=== PATIENT | female | born 1940 | race Caucasian/White ===

== ENCOUNTER → 2016-04-21 | Outpatient (CLI) | payer OTHER, MEDICARE ==
--- NOTE | 2016-04-21 15:54 | DX ---
Chest, Two Views at 1531 hours History: Cough, congestion, J42. Comparison: July 2014 Findings: Cardiac silhouette is within normal range. Large retrocardiac hiatal hernia. Patchy right l ower lobe costophrenic angle opacity which may represent early pneumonia. Impression: 1. Large hiatal hernia. 2. Possible early right lower lobe pneumonia.
== END ==
LOC: CIMAGING 15:22
PROVIDERS: ATTEND Internal Medicine
DX: K44.9 Diaphragmatic hernia without obstruction or gangrene (principal); R91.8 Other nonspecific abnormal finding of lung field
CPT/HCPCS: 71020-PO

== ENCOUNTER 2016-05-15 08:52 | Emergency (ER) | payer OTHER, MEDICARE ==
[2016-05-15 09:21] VITALS: RESP 22; TEMP 97.9
--- NOTE | 2016-05-15 10:08 | CPEKG ---
Heart Rate: 68 RR Interval: 882 P-R Interval: 140 QRSD Interval: 80 QT Interval: 408 QTC Interval: 434 P [place]: 9 QRS [place]: 12 T Wave [place]: 1 EKG Severity - NORMAL ECG - EKG Impression: SINUS RHYTHM Electronically Signed By: Jadon Marroquin 15-May-2016 15:39:12
[2016-05-15] MEDS ORDERED: IPRATROPIUM/ALBUTEROL 3 ML DEYVIAL IH ONE (10:19)
[2016-05-15 10:25] LABS: % IMMATURE GRANULYOCYTES 0.6 % (0.0-1.1); ABSOLUTE IMMATURE GRANULOCYTES 0.06 10^3/uL (0.00-0.10); ADD DIFF? NO; ADD MORPH? NO; ADD SCAN? NO; ATYPICAL LYMPHOCYTE FLAG 20 (0-99); FRAGMENT RBC FLAG 0 (0-99); HEMATOCRIT 32.4 % (38.0-47.0); HEMOGLOBIN 10.8 g/dL (12.6-16.3); LEFT SHIFT FLG 0 (0-99); LIPEMIA HEMOLYSIS FLAG 80 (0-99); MEAN CELL HEMOGLOBIN 31.3 pg (27.9-34.1); MEAN CELL HEMOGLOBIN CONCENTR. 33.3 g/dL (32.4-36.7); MEAN CELL VOLUME 93.9 fL (81.5-99.8); MEAN PLATELET VOLUME 9.6 fL (8.7-11.7); PLATELET CLUMPS FLAG 10 (0-99); PLATELET COUNT 223 10^3/uL (150-400); RED BLOOD CELL COUNT 3.45 10^6/uL (4.18-5.33); RED CELL DISTRIBUTION WIDTH 15.9 % (11.5-15.2)
[2016-05-15 10:41] LABS: ANION GAP 12 mEq/L (8-16); CALCIUM 8.9 mg/dL (8.5-10.4); CARBON DIOXIDE 24 mEq/l (22-31); CHLORIDE 104 mEq/L (97-110); CREATININE 1.1 mg/dL (0.6-1.0); GLOMERULAR FILTRATION RATE 48; GLUCOSE 96 mg/dL (70-100); POTASSIUM 3.9 mEq/L (3.5-5.2); SODIUM 140 mEq/L (134-144)
[2016-05-15 10:54] LABS: TROPONIN I < 0.012 ng/mL (0-0.034)
--- NOTE | 2016-05-15 10:54 | DX ---
PA and lateral chest. Clinical History: sob night sweats pneu 3 wk lpta Comparison Study: April 21, 2016.. Findings: The lungs are clear. No pleural disease identified. Heart size is normal. Moderate size hiatal hernia.. Impression: Stable chest. Hiatal hernia.
--- NOTE | 2016-05-15 11:02 | UCPHY ---
H & P Patient Type: New Chief Complaint Nursing Narrative: 2 days of sob and night sweats. Right mid back pain and chest tight. History of resp issues. 3 wks ago Right sided pneumonia txd with Zpack and pred. Time Seen by Provider: 05/15/16 09:25 HPI/ROS: Over the past 2 nights this patient reports increase an cough was associated diaphoresis at night over the past couple nights. She also has a feeling of dyspnea. She thinks that the symptoms are attributable to her asthma. However , she was diagnosed with pneumonia 3 weeks ago the visit to Dr. [facility] office and a chest x-ray. She was treated with Zithromax antibiotics and she felt her symptoms improved until the last 2 days when the cough returned. She reports a tightness in her chest that feels mild in intensity and similar to previous asthma. She reports currently that is 4/10 in intensity and she notes no exacerbating or alleviating factors. The pain does not radiate from her chest. ROS: No fevers or chills. She reports no other constitutional complaints including no fatigue. HEENT: No significant coryza. No sore throat. No other complaints. Pulmonary: No pleuritic pain. No respiratory distress. Cardiovascular: No heart palpitations. She reports no lower extremity swelling or calf pain. GI: No nausea vomiting. : No complaints skin: No skin rash neurologic: No complaints 10 point ROS is otherwise negative. Source: Patient Exam Limitations: No limitations - Medical/Surgical History PMH: History of a systolic murmur and mildly enlarged heart. 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 Hx Asthma: Yes Hx Chronic Respiratory Disease: Yes Hx Diabetes: No Hx Cardiac Disease: No Hx Renal Disease: Yes Hx Cirrhosis: No Hx Alcoholism: No Hx HIV/AIDS: No Hx Splenectomy or Spleen Trauma: No Other PMH: PCP Reidal. asthma / interstitial lung dx. Hysterectomy. r wrist repair. tonsilectomy - Family History Significant Family History: No pertinent family hx - Social History Smoking Status: Former smoker Alcohol Use: None Drug Use: None Additional Social History: The patient lives alone. - Physical Exam Exam: General Appearance: Alert, no distress. Eyes: Pupils equal and round no pallor or injection. ENT, Mouth: Mucous membranes moist. Respiratory: Mild rales right base more than left. Faint expiratory wheeze that is mild. Cardiovascular: Regular rate and rhythm. The patient has a 2/6 holosystolic murmur. No JVD. No peripheral edema. Gastrointestinal: Abdomen is soft and nontender, no masses, bowel sounds normal. Neurological: . Alert with no focal deficits Skin: Warm and dry, no rashes. Musculoskeletal: Neck is supple nontender. Extremities are symmetrical, full range of motion. Psychiatric: Mood and affect are normal. DIFFERENTIAL DIAGNOSIS: After history and physical exam differential diagnosis was considered for recurrent pneumonia, bronchitis, congestive heart failure, coronary syndrome, asthma exacerbation Constitutional: Initial Vital Signs Temperature (C) 36.6 C 05/15/16 09:16 Heart Rate 78 05/15/16 09:16 Respiratory Rate 22 H 05/15/16 09:16 Blood Pressure 158/88 H 05/15/16 09:16 O2 Sat (%) 96 05/15/16 09:16 O2 Delivery Mode Room Air O2 (L/minute) 2 Allergies/Adverse Reactions: clindamycin Allergy (Verified 05/15/16 09:21) Penicillins Allergy (Verified 05/15/16 09:21) Tetracyclines Allergy (Verified 05/15/16 09:21) Home Medications: Medication Instructions Recorded Albuterol [Proventil Inhaler HFA 2 puffs IH Q4 PRN #1 mdi 05/15/16 (*)] Budesonide/Formoterol 160/4.5 1 puffs IH BID #1 mdi 05/15/16 [Symbicort 160-4.5 Mcg Inh (*)] Flonase Nasal [place] 05/15/16 Montelukast Sodium 10 mg PO DAILY #30 tablet 05/15/16 Pepcid AC 05/15/16 Proair Hfa Icu (*) 05/15/16 Symbicort 160-4.5 Mcg Inh (*) 05/15/16 levOFLOXACIN [Levaquin] 500 mg PO DAILY #7 tablet 05/15/16 predniSONE 40 mg PO DAILY #10 tab 05/15/16 Medical Decision Making - Diagnostics EKG Interpretation: 12 lead EKG performed at 10:06 a.m. reveals sinus rhythm at 68 Intervals: Normal throughout [place]: Normal throughout ST segments: Normal throughout Overall assessment normal EKG. Imaging: Chest x-ray: Appreciate no focal infiltrates. When compared to previous chest x-ray I do not appreciate significant interval change. Our radiologist read this as stable chest ED Course/Re-evaluation: DuoNeb with increased aeration decreased cough and wheeze. Patient felt subjective improvement. Pursued further workup given her age, systolic murmur and chest tightness to rule out coronary syndrome other is in review of her labs reveals normal troponin, and BNP within normal limits for her age, CBC with mild leukocytosis. While she has anemia it is improving when I review her previous CBCs. Electrolytes normal. I counseled regarding findings. Given the leukocytosis and worsening symptoms for 48 hours will cover her with an antibiotic. She also feels that she still has significant asthma symptoms and is open to a burst of prednisone. Counseled her regarding this and she received 1st dose of prednisone here. I think that the rales on her exam are likely baseline triple to her interstitial lung disease. Patient is not certain if she typically has rales on her exam or not. - Data Points Laboratory Results: Laboratory Results 05/15/16 10:20 05/15/16 10:20 05/15/16 05/15/16 11:20 10:20 WBC 9.71 H 10^3/uL (3.80-9.50) RBC 3.45 L 10^6/uL (4.18-5.33) Hgb 10.8 L g/dL (12.6-16.3) Hct 32.4 L % (38.0-47.0) MCV 93.9 fL (81.5-99.8) MCH 31.3 pg (27.9-34.1) MCHC 33.3 g/dL (32.4-36.7) RDW 15.9 H % (11.5-15.2) Plt Count 223 10^3/uL (150-400) MPV 9.6 fL (8.7-11.7) Neut % (Auto) 75.1 H % (39.3-74.2) Lymph % (Auto) 14.0 L % (15.0-45.0) [place] % (Auto) 7.6 % (4.5-13.0) Eos % (Auto) 2.1 % (0.6-7.6) Baso % (Auto) 0.6 % (0.3-1.7) Nucleat RBC Rel Count 0.0 % (0.0-0.2) Absolute Neuts (auto) 7.29 H 10^3/uL (1.70-6.50) Absolute Lymphs (auto) 1.36 10^3/uL (1.00-3.00) Absolute Monos (auto) 0.74 10^3/uL (0.30-0.80) Absolute Eos (auto) 0.20 10^3/uL (0.03-0.40) Absolute Basos (auto) 0.06 10^3/uL (0.02-0.10) Absolute Nucleated RBC 0.00 10^3/uL (0-0.01) Immature Gran % 0.6 % (0.0-1.1) Immature Gran # 0.06 10^3/uL (0.00-0.10) Sodium 140 mEq/L (134-144) Potassium 3.9 mEq/L (3.5-5.2) Chloride 104 mEq/L (97-110) Carbon Dioxide 24 mEq/l (22-31) Anion Gap 12 mEq/L (8-16) BUN 21 mg/dL (7-23) Creatinine 1.1 H mg/dL (0.6-1.0) Estimated GFR 48 Glucose 96 mg/dL (70-100) Calcium 8.9 mg/dL (8.5-10.4) Troponin I < 0.012 ng/mL (0-0.034) NT-Pro-B Natriuret Pep 828 H pg/mL (0-450) Influenza Typ A,B (DFA) NEGATIVE FOR FLU (NEGATIVE) Medications Given: Discontinued Medications Albuterol/Ipratropium (Duoneb) 3 ml IH EDNOW ONE Stop: 05/15/16 10:20 Last Admin: 05/15/16 10:30 Dose: 3 ml Prednisone (Prednisone) 40 mg PO EDNOW ONE Stop: 05/15/16 11:06 Last Admin: 05/15/16 11:10 Dose: 40 mg Departure - Departure Disposition: Home, Routine, Self-Care Clinical Impression: Asthma exacerbation Acute bronchitis Qualifiers: Bronchitis organism: unspecified organism Qualifier Code: (J20.9) Acute bronchitis, unspecified Condition: Good Instructions: Acute Bronchitis (ED), Asthma (ED) Additional Instructions: Diagnosis: 1. Acute bronchitis 2. Asthma exacerbation Plan: Prednisone Albuterol inhaler with spacer for cough, wheeze or shortness of breath Levaquin antibiotic Call your primary care physician to arrange follow-up appointment in 3-5 days for recheck Go to the emergency department for any significant worsening despite the treatment plan. Referrals: Baldemar Rosas MD [Primary Care Provider] - As per Instructions Prescriptions: levOFLOXACIN [Levaquin] 500 mg PO DAILY #7 tablet Montelukast Sodium 10 mg PO DAILY #30 tablet Albuterol [Proventil Inhaler HFA (*)] 2 puffs IH Q4 PRN #1 mdi PRN Reason: Wheezing Budesonide/Formoterol 160/4.5 [Symbicort 160-4.5 Mcg Inh (*)] 1 puffs IH BID #1 mdi predniSONE 40 mg PO DAILY #10 tab - PQRS PQRS Measurement: 134: Depression screening and followup, PRIME MD-PHQ2 (12 years and older) Over the last 2 weeks, how often have you been bothered by any of the following problems? 1. Feeling down, depressed, or hopeless? 2. Little interest or pleasure in doing things? Patient answered no to both 1 and 2 130: Documentation of medications. Reviewed all patient medications, doses, route and frequency. 226: Do you smoke? [No.] 47: 65 and older: Advanced care planning. Patient designates surrogate decision maker as [Patient has advanced directive.] 51: 18 years old and older with diagnosis of COPD, spirometry performance. NA 52: 18 years old and older with COPD and symptoms of COPD or FEV1<60% predicted prescribed a B Agonist. NA
[2016-05-15] MEDS ORDERED: predniSONE 20 MG TAB PO ONE (11:05)
[2016-05-15 11:35] VITALS: BP 150/90; PULSE 77; O2SAT 92
== END 2016-05-15 11:52 | disposition home or self-care (01) ==
LOC: CED 08:52
DX: J45.901 Unspecified asthma with (acute) exacerbation (principal); J20.9 Acute bronchitis, unspecified; Z87.891 Personal history of nicotine dependence; Z88.0 Allergy status to penicillin
CPT/HCPCS: 71020; 93005; G0463; 80048-PO; 83880-PO; 84484-PO; 85025-PO; 87400-PO; 93010-PO; 99205-PO

== ENCOUNTER 2016-09-14 16:49 | Emergency (ER) | payer OTHER, MEDICARE ==
[2016-09-14 16:58] VITALS: RESP 18; TEMP 98.2
[2016-09-14] MEDS ORDERED: predniSONE 20 MG TAB PO ONE (17:09)
--- NOTE | 2016-09-14 17:19 | EDPHY ---
H & P Stated Complaint: cough for 3 weeks, felt feverish, tight to breath Time Seen by Provider: 09/14/16 17:01 HPI/ROS: CHIEF COMPLAINT: Cough HISTORY OF PRESENT ILLNESS: The patient is a 76-year-old female with a history of interstitial lung disease comes to the emergency department complaining of cough persistent for the last 3 weeks. She has been afebrile. Cough is not been productive. She denies shortness of breath. She denies chest pain. She has been using her inhaler up to 5 times a day and her nebulizer 4 times a day. She has a history of a GI bleed and was told not to take nonsteroidals. She thought this med she cannot take prednisone either. REVIEW OF SYSTEMS: Constitutional: denies: chills, fever, recent illness, recent injury EENTM: denies: blurred vision, double vision, nose congestion Respiratory: See HPI Cardiac: denies: chest pain, irregular heart rate, lightheadedness, palpitations Gastrointestinal/Abdominal: denies: abdominal pain, diarrhea, nausea, vomiting, blood streaked stools Genitourinary: denies: dysuria, frequency, hematuria, pain Musculoskeletal: denies: joint pain, muscle pain Skin: denies: lesions, rash, jaundice, bruising Neurological: denies: headache, numbness, paresthesia, tingling, dizziness, weakness Hematologic/Lymphatic: denies: blood clots, easy bleeding, easy bruising Immunologic/allergic: denies: HIV/AIDS, transplant EXAM: GENERAL: Well-appearing, well-nourished and in no acute distress. HEAD: Atraumatic, normocephalic. EYES: Pupils equal round and reactive to light, extraocular movements intact, sclera anicteric, conjunctiva are normal. ENT: TMs normal, nares patent, oropharynx clear without exudates. Moist mucous membranes. NECK: Normal range of motion, supple without lymphadenopathy or JVD. LUNGS: Right lower lobe rhonchi. No wheezing HEART: Regular rate and rhythm without murmurs, rubs or gallops. ABDOMEN: Soft, nontender, normoactive bowel sounds. No guarding, no rebound. No masses appreciated. BACK: No CVA tenderness, no spinal tenderness, step-offs or deformities EXTREMITIES: Normal range of motion, no pitting or edema. No clubbing or cyanosis. NEUROLOGICAL: Cranial nerves II through XII grossly intact. Normal speech, normal gait. 5/5 strength, normal movement in all extremities, normal sensation PSYCH: Normal mood, normal affect. SKIN: She does have a small candidal infection underneath crease of her left breast. Source: Patient Exam Limitations: No limitations - Medical/Surgical History Hx Asthma: Yes Hx Chronic Respiratory Disease: Yes Hx Diabetes: No Hx Cardiac Disease: No Hx Renal Disease: Yes Hx Cirrhosis: No Hx Alcoholism: No Hx HIV/AIDS: No Hx Splenectomy or Spleen Trauma: No Other PMH: PCP Reidal. asthma / interstitial lung dx. Hysterectomy. r wrist repair. tonsilectomy - Family History Significant Family History: No pertinent family hx - Social History Smoking Status: Former smoker Alcohol Use: None Drug Use: None Constitutional: Initial Vital Signs Temperature (C) 36.8 C 09/14/16 16:56 Heart Rate 83 09/14/16 16:56 Respiratory Rate 18 09/14/16 16:56 Blood Pressure 158/88 H 09/14/16 16:56 O2 Sat (%) 94 09/14/16 16:56 O2 Delivery Mode Room Air Allergies/Adverse Reactions: clindamycin Allergy (Verified 09/14/16 16:56) Penicillins Allergy (Verified 09/14/16 16:56) Tetracyclines Allergy (Verified 09/14/16 16:56) Home Medications: Medication Instructions Recorded Albuterol [Proventil Inhaler HFA 2 puffs IH Q4 PRN #1 mdi 05/15/16 (*)] Budesonide/Formoterol 160/4.5 1 puffs IH BID #1 mdi 05/15/16 [Symbicort 160-4.5 Mcg Inh (*)] Flonase Nasal [place] 05/15/16 Montelukast Sodium 10 mg PO DAILY #30 tablet 05/15/16 Pepcid AC 05/15/16 Proair Hfa Icu (*) 05/15/16 Symbicort 160-4.5 Mcg Inh (*) 05/15/16 levOFLOXACIN [Levaquin] 500 mg PO DAILY #7 tablet 05/15/16 predniSONE 40 mg PO DAILY #10 tab 05/15/16 AZITHROMYCIN [Z-PACK] 250 mg PO DAILY #6 tab 09/14/16 Miconazole Nitrate [Miconazole 7] 45 gm TD BID #1 cream.appl 09/14/16 predniSONE 60 mg PO DAILY #15 tab 09/14/16 Medical Decision Making - Diagnostics Imaging Results: Imaging Impressions Chest X-Ray 09/14/16 17:11 Impression: Large hiatal hernia. Imaging: I viewed and interpreted images myself ED Course/Re-evaluation: The patient's x-rays are reassuring. Considering her lung exam and history I will start her on prednisone and azithromycin. She is agreeable with this plan. She is going to be traveling to [place] for . She is happy with this and declines further workup or testing. Differential Diagnosis: Partial list of the Differential diagnosis considered include but were not limited to; pneumonia, bronchitis, reactive airway disease and although unlikely based on the history and physical exam, I also considered acute coronary disease, PE, pneumothorax. I discussed these differential diagnoses and the plan with the patient as well as the usual and expected course. The patient understands that the diagnosis is provisional and that in medicine we are not always correct and that further workup is often warranted. Usual and customary warnings were given. All of the patient's questions were answered. The patient was instructed to return to the emergency department should the symptoms at all worsen or return, otherwise to followup with the physician as we discussed. - Data Points Medications Given: Discontinued Medications Prednisone (Prednisone) 60 mg PO EDNOW ONE Stop: 09/14/16 17:10 Last Admin: 09/14/16 17:28 Dose: 60 mg Departure - Departure Disposition: Home, Routine, Self-Care Clinical Impression: Interstitial lung disease Acute bronchitis Qualifiers: Bronchitis organism: unspecified organism Qualified Code(s): J20.9 - Acute bronchitis, unspecified Condition: Fair Instructions: Acute Bronchitis (ED), Chronic Lung Disease and Infection Prevention (ED) Referrals: NONE *PRIMARY CARE P,. [Primary Care Provider] - As per Instructions Kwabena Hanson MD [Medical Doctor] - As per Instructions Prescriptions: AZITHROMYCIN [Z-PACK] 250 mg PO DAILY #6 tab Miconazole Nitrate [Miconazole 7] 45 gm TD BID #1 cream.appl predniSONE 60 mg PO DAILY #15 tab
[2016-09-14 17:40] VITALS: BP 156/72; PULSE 75; O2SAT 96
== END 2016-09-14 17:40 | disposition home or self-care (01) ==
LOC: CED 16:49
DX: J20.9 Acute bronchitis, unspecified (principal); J84.9 Interstitial pulmonary disease, unspecified; J45.909 Unspecified asthma, uncomplicated; Z87.891 Personal history of nicotine dependence
CPT/HCPCS: 71020-PO

== ENCOUNTER → 2016-10-03 | Outpatient (CLI) | payer OTHER, MEDICARE | LOC: CIMAGING 08:39 | PROVIDERS: ATTEND Family Medicine | DX: J43.9 Emphysema, unspecified (principal); J84.10 Pulmonary fibrosis, unspecified; K44.9 Diaphragmatic hernia without obstruction or gangrene | CPT/HCPCS: 71250-PO; G0202 ==

== ENCOUNTER 2017-05-27 15:21 | Emergency (ER) | payer OTHER, MEDICARE ==
[2017-05-27 15:39] VITALS: TEMP 98.6
--- NOTE | 2017-05-27 15:45 | EDPHY ---
H & P Time Seen by Provider: 05/27/17 15:31 HPI/ROS: HPI Shortness of breath, cough. 76-year-old female by private vehicle. She reports having intermittent shortness of breath, low-grade fever, non productive cough and fatigue for the last 3 weeks. She reports that she also has an associated intermittent low- grade fever. She reports that she has had several episodes of the symptoms. She reports that she has a busy day with exertion and then starts to feel ill with the above symptoms. She then rest and the symptoms improved. This cycle then repeats itself. She reports that today she was feeling more short of breath and has some discomfort in her right lower lung area. She is concerned about a pneumonia and that is what made her come to the hospital. ROS: Constitutional: As above, no chills. Eyes: No discharge. No changes in vision. ENT: No sore throat. No nasal congestion or rhinorrhea. Respiratory: As above. Cardiac: No chest pain, no palpitations. Gastrointestinal: No abdominal pain, no vomiting, no diarrhea. Genitourinary: No hematuria. No dysuria or increased frequency with urination. Musculoskeletal: As above. No neck pain. She has had mild arthralgias and myalgias. Skin: No rashes. Neurological: No headache. No focal weakness or altered sensation. Past medical history: COPD, asthma for which she takes albuterol and steroid inhaler. Interstitial lung disease. . Tonsillectomy. Her design studio consultant is Dr. Aquilino Hanson. Social history: She lives with her daughter. No alcohol. She quit smoking 30 years ago. Physical Exam: General Appearance: Alert, no distress. Mildly dyspneic when talking. This patient is responding to questions appropriately and in full sentences. This patient appears well-hydrated and well-nourished. Eyes: Pupils equal and round no pallor or injection. No lid edema, erythema or injection. Respiratory: There are no retractions, lungs are clear to auscultation with mild to moderate diminished air movement. No tachypnea on pulmonary exam. Cardiovascular: Regular rate and rhythm. No murmur. Gastrointestinal: Abdomen is soft and nontender, no masses, bowel sounds normal. No focal tenderness at McBurney's point. No Sanchez sign. Neurological: Motor sensory function is grossly intact. Cranial nerves are normal. Gait is normal. Skin: Warm and dry, no rashes. Musculoskeletal: Neck is supple and nontender. Extremities are symmetrical. All joints range without pain or impingement. Psychiatric: No agitation. No depression. Database: EKG: EKG time is 4:00 p.m.; EKG shows a narrow complex normal sinus rhythm with a ventricular rate of 76. The [place], QRS, QT intervals are within normal limits. T- wave inversion noted in lead 3 with T-wave flattening in AVF. These changes are seen on a previous EKG from May 152016. Otherwise, there are no ST-T wave changes indicative of ischemic or injury pattern. No evidence of right heart strain. Interpreted by me. Imaging: Chest x-ray PA and lateral; the cardiac mediastinal silhouette is unremarkable. Questionable early right lower lateral infiltrative process. No pneumothorax. Probable bronchitis. No other acute cardiopulmonary disease process noted. Interpreted by me. Procedures: Emergency department course: Vital signs reviewed. Moderately hypertensive. Patient afebrile. Vital signs otherwise normal. Discussed workup for pneumonia as well as cardiac and thromboembolic disease. She consents. She will be given an albuterol/Atrovent nebulizer treatment. She is declining steroids at this time. EKG obtained and reviewed by myself. 4:50 p.m., patient re-evaluated. She reports that the nebulizer helped things to loosen up and she feels better. We will repeat this treatment. 5:30 p.m., patient re-evaluated. She is feeling much better. I discussed results of her emergency department workup. I discussed starting her on a short course of steroids. She consented and was given 60 mg of oral prednisone. She feels comfortable going home and I feel she is safe for discharge. Secondary to the possibility of early pneumonia will start her on Levaquin. She was given 500 mg in the emergency department. She will be prescribed Levaquin 500 mg over the next 4 days as well as a short course of prednisone. She has been instructed follow up with her primary care physician or design studio consultant on Monday or Monday of this week for re-evaluation. Return to emergency department precautions were thoroughly reviewed with her. She can easily return to the emergency department if necessary. All of her questions were answered. She was discharged in good condition. Differential Diagnosis: The differential diagnosis on this patient includes but is not limited to pneumonia, pulmonary embolism, COPD exacerbation, asthma exacerbation, influenza , bronchitis. This represents a partial list of diagnoses considered. These considerations are based on history, physical exam, past history, reassessment and diagnostic testing. Smoking Status: Former smoker Constitutional: Initial Vital Signs Temperature (C) 37.0 C 05/27/17 15:30 Heart Rate 88 05/27/17 15:30 Respiratory Rate 18 05/27/17 15:30 Blood Pressure 156/77 H 05/27/17 15:30 O2 Sat (%) 96 05/27/17 15:30 O2 Delivery Mode Room Air Allergies/Adverse Reactions: clindamycin Allergy (Verified 05/27/17 15:26) Penicillins Allergy (Verified 05/27/17 15:26) Tetracyclines Allergy (Verified 05/27/17 15:26) Home Medications: Medication Instructions Recorded Albuterol [Proventil Inhaler HFA 2 puffs IH Q4 PRN #1 mdi 05/15/16 (*)] Montelukast Sodium 10 mg PO DAILY #30 tablet 05/15/16 Pepcid AC 05/15/16 Symbicort 160-4.5 Mcg Inh (*) 05/15/16 levOFLOXACIN [levAQUIN (*)] 500 mg PO DAILY #4 tab 05/27/17 predniSONE [prednisone 20mg (RX)] 60 mg PO DAILY #9 tab 05/27/17 Medical Decision Making - Diagnostics Imaging Results: Imaging Impressions Chest X-Ray 05/27/17 15:38 Impression: 1. Findings consistent with COPD are noted. Emphysema has been demonstrated previously. 2. Interstitial fibrotic changes. 3. Peribronchial thickening suggests an element of chronic bronchitis. - Data Points Laboratory Results: Laboratory Results 05/27/17 16:15 05/27/17 16:15 05/27/17 05/27/17 05/27/17 16:45 16:15 16:15 WBC RBC Hgb Hct MCV MCH MCHC RDW Plt Count MPV Neut % (Auto) Lymph % (Auto) [place] % (Auto) Eos % (Auto) Baso % (Auto) Nucleat RBC Rel Count Absolute Neuts (auto) Absolute Lymphs (auto) Absolute Monos (auto) Absolute Eos (auto) Absolute Basos (auto) Absolute Nucleated RBC Immature Gran % Immature Gran # PT 13.2 SEC SEC (12.0-15.0) INR 1.01 (0.83-1.16) APTT 33.7 SEC SEC (23.0-38.0) D-Dimer < 0.27 ug/mLFEU ug/mLFEU (0.00-0.50) Sodium 137 mEq/L mEq/L (135-145) Potassium 4.5 mEq/L mEq/L (3.5-5.2) Chloride 100 mEq/L mEq/L (97-110) Carbon Dioxide 24 mEq/l mEq/l (22-31) Anion Gap 13 mEq/L mEq/L (8-16) BUN 29 mg/dL H mg/dL (7-23) Creatinine 1.0 mg/dL mg/dL (0.6-1.0) Estimated GFR 54 Glucose 96 mg/dL mg/dL (70-100) Calcium 9.1 mg/dL mg/dL (8.5-10.4) Troponin I < 0.012 ng/mL ng/mL (0.000-0.034) NT-Pro-B Natriuret Pep 368 pg/mL pg/mL (0-450) Influenza A,B Rapid NEGATIVE FOR FLU (NEGATIVE) 05/27/17 16:15 WBC 8.60 10^3/uL 10^3/uL (3.80-9.50) RBC 3.59 10^6/uL L 10^6/uL (4.18-5.33) Hgb 11.0 g/dL L g/dL (12.6-16.3) Hct 33.4 % L % (38.0-47.0) MCV 93.0 fL fL (81.5-99.8) MCH 30.6 pg pg (27.9-34.1) MCHC 32.9 g/dL g/dL (32.4-36.7) RDW 16.7 % H % (11.5-15.2) Plt Count 293 10^3/uL 10^3/uL (150-400) MPV 9.4 fL fL (8.7-11.7) Neut % (Auto) 64.1 % % (39.3-74.2) Lymph % (Auto) 21.7 % % (15.0-45.0) [place] % (Auto) 8.4 % % (4.5-13.0) Eos % (Auto) 4.1 % % (0.6-7.6) Baso % (Auto) 1.4 % % (0.3-1.7) Nucleat RBC Rel Count 0.0 % % (0.0-0.2) Absolute Neuts (auto) 5.51 10^3/uL 10^3/uL (1.70-6.50) Absolute Lymphs (auto) 1.87 10^3/uL 10^3/uL (1.00-3.00) Absolute Monos (auto) 0.72 10^3/uL 10^3/uL (0.30-0.80) Absolute Eos (auto) 0.35 10^3/uL 10^3/uL (0.03-0.40) Absolute Basos (auto) 0.12 10^3/uL H 10^3/uL (0.02-0.10) Absolute Nucleated RBC 0.00 10^3/uL 10^3/uL (0-0.01) Immature Gran % 0.3 % % (0.0-1.1) Immature Gran # 0.03 10^3/uL 10^3/uL (0.00-0.10) PT INR APTT D-Dimer Sodium Potassium Chloride Carbon Dioxide Anion Gap BUN Creatinine Estimated GFR Glucose Calcium Troponin I NT-Pro-B Natriuret Pep Influenza A,B Rapid Medications Given: Discontinued Medications Albuterol/Ipratropium (Duoneb) 3 ml IH EDNOW ONE Stop: 05/27/17 15:49 Last Admin: 05/27/17 16:05 Dose: 3 ml Albuterol/Ipratropium (Duoneb) 3 ml IH EDNOW ONE Stop: 05/27/17 16:49 Last Admin: 05/27/17 16:54 Dose: 3 ml Levofloxacin (Levaquin) 500 mg PO EDNOW ONE PRN Reason: Protocol Stop: 05/27/17 17:26 Last Admin: 05/27/17 17:48 Dose: 500 mg Prednisone (Prednisone) 60 mg PO EDNOW ONE Stop: 05/27/17 17:26 Last Admin: 05/27/17 17:48 Dose: 60 mg Departure - Departure Disposition: Home, Routine, Self-Care Clinical Impression: Dyspnea, Bronchitis Condition: Good Instructions: Prednisone (By mouth), Levofloxacin (By mouth), Acute Bronchitis (ED) Additional Instructions: Read and follow provided instructions. No strenuous activity until cleared by your primary care physician or design studio consultant. Follow-up with your primary care physician on Monday or Monday of this coming week for re-evaluation. Take medications as prescribed. Use your albuterol inhaler liberally as needed for cough and shortness of breath. Fill prescription for Levaquin and start taking this medication tomorrow evening at about 6 o'clock. 1 pill daily for the next 4 days. Return to the emergency department for worsening symptoms, fever, worsening cough, difficulty breathing or other serious concerns. Referrals: Baldemar Rosas MD [Primary Care Provider] - As per Instructions Prescriptions: levOFLOXACIN [levAQUIN (*)] 500 mg PO DAILY #4 tab predniSONE [prednisone 20mg (RX)] 60 mg PO DAILY #9 tab
[2017-05-27] MEDS ORDERED: IPRATROPIUM/ALBUTEROL 3 ML DEYVIAL IH ONE ×2 (15:48→16:48)
[2017-05-27 16:23] LABS: PLATELET COUNT 293 10^3/uL (150-400)
[2017-05-27 16:33] LABS: INR 1.01 (0.83-1.16); PROTIME(PATIENT) 13.2 SEC (12.0-15.0)
[2017-05-27] MEDS ORDERED: predniSONE 20 MG TAB PO ONE (17:25)
[2017-05-27 17:43] VITALS: BP 150/91; PULSE 76; RESP 18; O2SAT 94
--- NOTE | 2017-05-28 06:08 | CPEKG ---
Heart Rate: 76 RR Interval: 789 P-R Interval: 144 QRSD Interval: 84 QT Interval: 396 QTC Interval: 446 P [place]: -2 QRS [place]: 4 T Wave [place]: -8 EKG Severity - BORDERLINE ECG - EKG Impression: SINUS RHYTHM EKG Impression: BORDERLINE T ABNORMALITIES, INFERIOR LEADS Electronically Signed By: Seferino Faust 29-May-2017 06:11:40
== END 2017-05-27 17:41 | disposition home or self-care (01) ==
LOC: CED 15:21
DX: J44.0 Chronic obstructive pulmonary disease with (acute) lower respiratory infection (principal)
CPT/HCPCS: 71046; 93005; 99285; J7512; 80048-PO; 83880-PO; 84484-PO; 85025-PO; 85378-PO; 85610-PO; 85730-PO; 87400-PO